=== PATIENT | female | born 1980 | race Caucasian/White ===

== ENCOUNTER 2018-05-01 07:56 | Day surgery (SDC) | payer BC ==
[2018-04-30 14:57] VITALS: BMI 24.8
[2018-05-01 08:51] VITALS: O2SAT 100
[2018-05-01] MEDS ORDERED: Propofol 10 mg/ml Inj (20 ML) ONE ×3 (10:55→11:19)
[2018-05-01 12:00] VITALS: TEMP 98.5
[2018-05-01 13:03] VITALS: BP 114/67; PULSE 58; RESP 16
== END 2018-05-01 12:55 | disposition home or self-care (01) ==
LOC: C.ENDO 07:56
PROVIDERS: ATTEND Internal Medicine Gastroenterology
DX: R10.32 Left lower quadrant pain (principal); D12.5 Benign neoplasm of sigmoid colon; D12.3 Benign neoplasm of transverse colon; K57.90 Diverticulosis of intestine, part unspecified, without perforation or abscess without bleeding; K64.8 Other hemorrhoids
CPT/HCPCS: 45380; 45385; 84703; 88305; J2001; J2704